=== PATIENT | male | born 1960 | race Caucasian/White ===

== ENCOUNTER 2019-05-08 12:13 | Emergency (ER) | payer MEDICAID ==
[~2019-05-08] VITALS: Ht 175.3 cm; Wt 101.0 kg
[2019-05-08 13:20] LABS: BASOPHILS % (AUTO) 0.7 % (0-1); EOSINOPHILS # (AUTO) 0.1 X10'3 (0-0.9); HEMATOCRIT 38.2 % (42.0-52.0); HEMOGLOBIN 13.1 g/dl (14.0-17.9); LYMPHOCYTES # (AUTO) 0.9 X10'3 (1.1-4.8); LYMPHOCYTES % (AUTO) 14.2 % (21-51); MEAN CORPUSCULAR HEMOGLOBIN 29.1 PG (27.0-31.0); MEAN CORPUSCULAR HGB CONC 34.2 g/dL (33.0-36.5); MEAN CORPUSCULAR VOLUME 85.1 FL (78-98); MEAN PLATELET VOLUME 8.8 FL (7.4-10.4); MONOCYTES # (AUTO) 0.4 X10'3 (0-0.9); MONOCYTES % (AUTO) 6.7 % (2-12); NEUTROPHILS # (AUTO) 4.8 X10'3 (1.8-7.7); NEUTROPHILS % (AUTO) 77.4 % (42-75); RED BLOOD COUNT 4.49 X10'6 (4.70-6.10); RED CELL DISTRIBUTION WIDTH 15.6 % (11.5-14.5); WHITE BLOOD COUNT 6.2 X10'3 (4.5-11.0)
--- NOTE | 2019-05-08 13:22 | NUR ---
back from xray
[2019-05-08 13:33] LABS: PLATELET COUNT 47 X10'3 (140-440)
[2019-05-08 13:37] LABS: ALANINE AMINOTRANSFERASE 42 U/L (12-78); ALBUMIN 3.1 G/DL (3.4-5.0); ALBUMIN/GLOBULIN RATIO 0.6 (1.1-1.5); ALKALINE PHOSPHATASE 108 IU/L (46-116); ANION GAP 11 (8-16); ASPARTATE AMINO TRANSFERASE 50 U/L (10-37); BILIRUBIN,TOTAL 0.9 MG/DL (0.1-1.0); BLOOD UREA NITROGEN 34 MG/DL (7-18); BUN/CREATININE RATIO 14.1 (5.4-32.0); CALCIUM 9.1 MG/DL (8.5-10.1); CHLORIDE 98 MMOL/L (99-107); CREATININE 2.41 MG/DL (0.60-1.10); GLUCOSE 346 MG/DL (70-104); SODIUM 132 MMOL/L (135-145); TOTAL CARBON DIOXIDE 23.5 MMOL/L (24-32); TOTAL PROTEIN 7.9 G/DL (6.4-8.2); eGFR 28 ML/MIN
[2019-05-08 13:43] LABS: MAGNESIUM 1.7 MG/DL (1.5-2.4)
--- NOTE | 2019-05-08 13:43 | NUR ---
to ct scan via [facility] with tech
[2019-05-08] MEDS ORDERED: iohexol 300mg/ml 100ml inj. ONE (13:51)
[2019-05-08] MEDS ORDERED: MESSAGE TO NURSING PO NR (14:30)
[2019-05-08 14:36] LABS: ETHANOL < 0.010 GM/DL (0.0-0.010)
--- NOTE | 2019-05-08 14:46 | NUR ---
back from ct in stable condition. iv started in ct at
--- NOTE | 2019-05-08 14:47 | NUR ---
iv started in er after 3 attempts. iv patent in right ac.
--- NOTE | 2019-05-08 15:00 | NUR ---
remove c-collar per dr. ferrer
[2019-05-08] MEDS: ondansetron/PF 4mg/2ml inj IV ONE ×2 (15:02→15:07)
[2019-05-08] MEDS: morphine 4 MG/ML inj SYRINge IV ONE ×2 (15:03→15:06)
--- NOTE | 2019-05-08 15:07 | NUR ---
pt refused morphine, thinks hes allergic to morphine sulfate.
[2019-05-08] MEDS ORDERED: ondansetron 4mg rapidly disintigrating tab PO ONE (15:15)
[2019-05-08] MEDS ORDERED: HYDROcodone/acetaminophen 10/325mg tab PO ONE (15:15)
[2019-05-08] MEDS ORDERED: TETanus/Pertussis (Acell)/Diphther VAC/PF (Tdap-Adult) 0.5ml syringe IMVAC ONE (15:15)
[2019-05-08] MEDS ORDERED: ONDA4TAB6 PO (15:39)
[2019-05-08] MEDS ORDERED: METH-360 PO (15:39)
[2019-05-08] MEDS ORDERED: HYDR-3965 PO (15:39)
--- NOTE | 2019-05-08 16:05 | NUR ---
[address] trauma [address] off from dr[address] ferrer
[2019-05-08] MEDS ORDERED: bacitracin 15gm ointment TP ONE (16:10)
[2019-05-08 17:12] VITALS: BP 124/69
== END 2019-05-08 17:19 | disposition home or self-care (01) ==
LOC: ER 12:14
DX: S06.0X0A Concussion without loss of consciousness, initial encounter (principal); S39.012A Strain of muscle, fascia and tendon of lower back, initial encounter; S16.1XXA Strain of muscle, fascia and tendon at neck level, initial encounter; S29.012A Strain of muscle and tendon of back wall of thorax, initial encounter; S80.812A Abrasion, left lower leg, initial encounter; S80.811A Abrasion, right lower leg, initial encounter; S40.812A Abrasion of left upper arm, initial encounter; S40.811A Abrasion of right upper arm, initial encounter; S00.83XA Contusion of other part of head, initial encounter; E11.65 Type 2 diabetes mellitus with hyperglycemia; R42 Dizziness and giddiness; R11.0 Nausea; M25.511 Pain in right shoulder; Z88.6 Allergy status to analgesic agent; Z79.899 Other long term (current) drug therapy; W10.8XXA Fall (on) (from) other stairs and steps, initial encounter; Y93.89 Activity, other specified; Y92.89 Other specified places as the place of occurrence of the external cause; Y99.8 Other external cause status
CPT/HCPCS: 36415; 70450; 71045; 71260; 72125; 74177; 80053; 80320; 82948; 83735; 83880; 84484; 85025; 90471; 90715; 93005; 99284; J2270; J2405; Q9967

== ENCOUNTER 2019-10-30 11:36 | Emergency (ER) | payer MEDICAID ==
[~2019-10-30] VITALS: Ht 175.3 cm; Wt 104.5 kg
[~2019-10-30 11:36] MED LIST: METH-360 PO; ONDA4TAB6 PO
[2019-10-30 13:19] LABS: BASOPHILS % (AUTO) 0.6 % (0-1); EOSINOPHILS # (AUTO) 0.1 X10'3 (0-0.9); EOSINOPHILS % (AUTO) 3.1 % (0-6); HEMATOCRIT 31.4 % (42.0-52.0); HEMOGLOBIN 10.8 g/dl (14.0-17.9); LYMPHOCYTES # (AUTO) 0.8 X10'3 (1.1-4.8); MEAN CORPUSCULAR HEMOGLOBIN 29.4 PG (27.0-31.0); MEAN CORPUSCULAR HGB CONC 34.3 g/dL (33.0-36.5); MEAN CORPUSCULAR VOLUME 85.7 FL (78-98); MONOCYTES # (AUTO) 0.5 X10'3 (0-0.9); MONOCYTES % (AUTO) 10.4 % (2-12); NEUTROPHILS # (AUTO) 3.1 X10'3 (1.8-7.7); NEUTROPHILS % (AUTO) 67.9 % (42-75); RED BLOOD COUNT 3.66 X10'6 (4.70-6.10); RED CELL DISTRIBUTION WIDTH 17.2 % (11.5-14.5); WHITE BLOOD COUNT 4.5 X10'3 (4.5-11.0)
[2019-10-30 13:28] LABS: PLATELET COUNT 50 X10'3 (140-440)
[2019-10-30 13:31] LABS: ALANINE AMINOTRANSFERASE 46 U/L (12-78); ALBUMIN 2.9 G/DL (3.4-5.0); ALBUMIN/GLOBULIN RATIO 0.6 (1.1-1.5); ALKALINE PHOSPHATASE 116 IU/L (46-116); ANION GAP 6 (8-16); ASPARTATE AMINO TRANSFERASE 57 U/L (10-37); BILIRUBIN,TOTAL 1.1 MG/DL (0.1-1.0); BLOOD UREA NITROGEN 29 MG/DL (7-18); BUN/CREATININE RATIO 19.5 (5.4-32.0); CALCIUM 9.6 MG/DL (8.5-10.1); CHLORIDE 103 MMOL/L (99-107); CREATININE 1.49 MG/DL (0.60-1.10); GLUCOSE 143 MG/DL (70-104); POTASSIUM 4.7 MMOL/L (3.5-5.1); SODIUM 137 MMOL/L (135-145); TOTAL CARBON DIOXIDE 27.9 MMOL/L (24-32); TOTAL PROTEIN 7.4 G/DL (6.4-8.2); eGFR 48 ML/MIN
[2019-10-30 13:39] LABS: LIPASE 254 U/L (73-393)
[2019-10-30] MEDS ORDERED: HYDR12.55 PO (14:04)
[2019-10-30 14:19] VITALS: BP 178/89
== END 2019-10-30 14:16 | disposition home or self-care (01) ==
LOC: ER 11:37
DX: R10.31 Right lower quadrant pain (principal); R60.0 Localized edema; R42 Dizziness and giddiness; R06.02 Shortness of breath; R53.83 Other fatigue; I25.10 Atherosclerotic heart disease of native coronary artery without angina pectoris; Z88.6 Allergy status to analgesic agent; Z79.899 Other long term (current) drug therapy
CPT/HCPCS: 36415; 80053; 83690; 83880; 85025; 99283

== ENCOUNTER 2021-11-28 09:07 | Day surgery (SDC) | payer MEDICAID ==
[~2021-11-28] VITALS: Ht 175.3 cm; Wt 127.3 kg
[2021-11-28] VITALS (11 sets, daily range): BP systolic 114–153; BP diastolic 58–78
[~2021-11-28 09:07] MED LIST changes: +HYDR12.55 PO
[2021-11-28] MEDS ORDERED: LIDOcaine 1%/PF 5ML 10 MG/ML VIAL SQ ONE (09:10)
[2021-11-28] MEDS ORDERED: LEVO112T5 PO (09:36)
[2021-11-28] MEDS ORDERED: ALBU18HF2 (09:44)
[2021-11-28] MEDS ORDERED: MIDO5TAB4 PO (09:44)
[2021-11-28] MEDS ORDERED: LACT10SO3 PO (09:44)
[2021-11-28] MEDS ORDERED: AMIT25TA10 PO (09:44)
[2021-11-28] MEDS ORDERED: INSU100I31 SQ (09:44)
[2021-11-28] MEDS ORDERED: PRAV20TA4 PO (09:44)
[2021-11-28] MEDS ORDERED: TIOT4MIS2 INH (09:44)
[2021-11-28] MEDS ORDERED: PHO667C PO (09:44)
[2021-11-28] MEDS ORDERED: FURO40TA4 PO (09:44)
[2021-11-28] MEDS ORDERED: METO10TA3 PO (09:44)
[2021-11-28] MEDS ORDERED: RIFA550T PO (09:44)
[2021-11-28] MEDS ORDERED: HYDR-3972 PO (09:44)
[2021-11-28] MEDS ORDERED: PRED20TA PO (09:44)
[2021-11-28] MEDS ORDERED: FLO0.4C PO (09:44)
[2021-11-28] MEDS ORDERED: SPIR50TA5 PO (09:44)
[2021-11-28] MEDS ORDERED: INSU100I39 SQ (09:44)
[2021-11-28] MEDS: albumin 25% 100mL bottle x 1 IV PRN ×2 (10:53→11:35)
== END 2021-11-28 12:47 | disposition home or self-care (01) ==
LOC: SSTAY O 09:07
PROVIDERS: ATTEND Radiology Vascular & Interventional Radiology
DX: R18.8 Other ascites (principal); E11.22 Type 2 diabetes mellitus with diabetic chronic kidney disease; I12.0 Hypertensive chronic kidney disease with stage 5 chronic kidney disease or end stage renal disease; N18.6 End stage renal disease; K74.60 Unspecified cirrhosis of liver; E78.00 Pure hypercholesterolemia, unspecified; E03.9 Hypothyroidism, unspecified; J43.9 Emphysema, unspecified; D64.9 Anemia, unspecified; D69.6 Thrombocytopenia, unspecified; E66.9 Obesity, unspecified; Z68.39 Body mass index [BMI] 39.0-39.9, adult; Z98.890 Other specified postprocedural states; Z88.8 Allergy status to other drugs, medicaments and biological substances; Z86.73 Personal history of transient ischemic attack (TIA), and cerebral infarction without residual deficits; Z79.4 Long term (current) use of insulin; Z79.899 Other long term (current) drug therapy; Z88.5 Allergy status to narcotic agent
CPT/HCPCS: 49083; J3490; P9047; Z7610; A4615; A6258